=== PATIENT | male | born 1960 | race Caucasian/White ===

== ENCOUNTER 2016-11-20 21:16 | Emergency (ER) | payer OTHER ==
[~2016-11-20] VITALS: Ht 185.4 cm; Wt 65.9 kg
[2016-11-20 21:18] VITALS: Ht 185.4 cm; Wt 65.9 kg
--- NOTE | 2016-11-20 22:31 | ERA ---
ER Documentation Chief Complaint Date/Time DATE: 11/20/16 TIME: 22:30 Chief Complaint GLENYS RA81 from home, generalized weakness for 1 week HPI The patient is a 56-year-old male, presenting to the ER because of generalized weakness for more than a week, decreased appetite, diarrhea for the last 3 days , intermittent cough for the last 2 days. He had similar symptoms previously, denies syncope, near syncope, seizure, neck pain, chest pain, dyspnea, abdominal pain, vomiting, dysuria. He smokes socially, denies drinking or using illicit drug Past medical history: Diabetes mellitus, HIV with an undetectable virus load, hypertension, dyslipidemia Past surgical history: None ROS All systems reviewed and are negative except as per history of present illness. Medications Home Meds Active Scripts Loperamide Hcl* (Imodium*) 2 Mg Capsule, 2 MG PO .AFTER EA LOOSE BM Y for DIARRHEA, #10 TAB Prov:GRACIELA TOLEDO MD 11/20/16 Reported Medications Naproxen* (Naproxen*) 125 Mg/5 Ml Oral.susp, 500 MG PO BID, ML 11/20/16 Benazepril Hcl* (Benazepril Hcl*) 5 Mg Tablet, 5 MG PO DAILY, #30 TAB 11/20/16 Ritonavir* (Norvir*) 100 Mg Capsule, 100 MG PO DAILY, CAP 11/20/16 Darunavir* (Prezista*) 100 Mg/1 Ml Oral.susp, 800 MG PO DAILY, ML 11/20/16 Emtricitabine-Tenofovir* (Truvada*) 200-300 Mg Tablet, 1 TAB PO DAILY, TAB 11/20/16 Aspirin* (Aspirin* EC) 81 Mg Tablet.dr, 81 MG PO DAILY, TAB 11/20/16 Atorvastatin Calcium* (Atorvastatin Calcium*) 20 Mg Tablet, 20 MG PO DAILY, #30 TAB 11/20/16 Allergies Allergies: Coded Allergies: No Known Allergy (Unverified , 11/20/16) PMhx/Soc Medical and Surgical Hx: pt denies Surgical Hx Hx Cardiac Disorders: Yes (HTN hyperlipidemia) Hx Miscellaneous Medical Probl: Yes (DM HIV) Hx Alcohol Use: No Hx Substance Use: No Hx Tobacco Use: Yes Smoking Status: Current every day smoker Physical Exam Vitals Vital Signs Date Time Temp Pulse Resp B/P Pulse Ox O2 Delivery O2 Flow Rate FiO2 11/20/16 23:08 77 124/95 95 Room Air 11/20/16 21:18 97.5 90 18 112/68 97 Physical Exam Const: No acute distress. Dehydrated Head: Atraumatic. Eyes: Normal Conjunctiva. ENT: Normal External Ears, Nose and Mouth. Neck: Full range of motion. No meningismus. Resp: Clear to auscultation bilaterally. Cardio: Regular rate and rhythm. Abd: Soft, non distended, normal bowel sounds, non tender. Skin: No petechiae or rashes. Back: No midline or flank tenderness. Ext: No cyanosis, or edema. Neur: Awake and alert. No focal deficit Psych: Normal Mood and Affect. Result Diagram: 11/20/16214311/20/162143 Results 24 hrs Laboratory Tests Test 11/20/16 21:44 White Blood Count 5.210^3/ul Red Blood Count 4.5910^6/ul Hemoglobin 14.9g/dl Hematocrit 40.9% Mean Corpuscular Volume 89.1fl Mean Corpuscular Hemoglobin 32.5pg Mean Corpuscular Hemoglobin Concent 36.4g/dl Red Cell Distribution Width 11.6% Platelet Count 46626^3/UL Mean Platelet Volume 10.1fl Neutrophils % 36.2% Lymphocytes % 52.7% Monocytes % 8.8% Eosinophils % 1.3% Basophils % 0.6% Nucleated Red Blood Cells % 0.0/100WBC Neutrophils # 1.910^3/ul Lymphocytes # 2.810^3/ul Monocytes # 0.510^3/ul Eosinophils # 0.110^3/ul Basophils # 0.010^3/ul Nucleated Red Blood Cells # 0.010^3/ul Prothrombin Time 12.6Sec Prothrombin Time Ratio 1.0 INR International Normalized Ratio 0.94 Activated Partial Thromboplast Time 30.9Sec Sodium Level 130mmol/L Potassium Level 3.7mmol/L Chloride Level 97mmol/L Carbon Dioxide Level 26mmol/L Anion Gap 11 Blood Urea Nitrogen 14mg/dl Creatinine 0.78mg/dl Glucose Level 117mg/dl Calcium Level 9.7mg/dl Total Bilirubin 0.4mg/dl Direct Bilirubin 0.00mg/dl Indirect Bilirubin 0.4mg/dl Aspartate Amino Transf (AST/SGOT) 38IU/L Alanine Aminotransferase (ALT/SGPT) 55IU/L Alkaline Phosphatase 111IU/L Total Protein 7.8g/dl Albumin 4.6g/dl Globulin 3.20g/dl Albumin/Globulin Ratio 1.43 Lipase 72U/L Ethyl Alcohol Level < 10.0mg/dl Current Medications Medications (Trade) Dose Ordered Sig/Liana Route PRN Reason Start Time Stop Time Status Last Admin Dose Admin Sodium Chloride (NS) 1,000 ml @ 1,000 mls/hr Q1H ONCE IV 11/20/16 23:00 11/20/16 23:59 11/20/16 23:10 Procedures/[place] [id number] Radiology Main Line: [phone] DIAGNOSTIC IMAGING REPORT Patient: SHANNEN RITTER : 1960 Age: 56 Sex: M MR #: [id number] DOS: 11/20/16 2245 Ordering MD: GRACIELA TOLEDO MD Location: E/R Room/Bed: PROCEDURE: XR Chest. CLINICAL INDICATION: Chest pain. Abdominal pain TECHNIQUE: Portable AP upright view of the chest was obtained. COMPARISON: None. FINDINGS: The cardiomediastinal silhouette is within normal limits. The lungs are clear. There is no evidence for pleural effusion, pneumothorax or pulmonary vascular congestion. The osseous structures are intact with no evidence for acute abnormality. RPTAT:HJJR IMPRESSION: No evidence for acute intrathoracic pathology. Physician Dee Date Time Electronically viewed and signed by Physician Dee on 11/20/2016 23:17 JR/ CC: GRACIELA TOLEDO MD EKG: Read by emergency physician Rate/Rhythm: Normal Sinus Rhythm 87 beats/min QRS, ST, T-waves: No ST elevation, no T inversion, septal Q waves Impression: Abnormal EKG MEDICAL MAKING DECISION: The patient is a 56-year-old male, presenting with acute dehydration. He was treated with 1 L normal saline for acute dehydration with good response. The differential diagnoses considered include but are not limited to pneumonia, viral syndrome, cystitis, infectious diarrhea, central causes such as cerebellar infarct, cerebellar hemorrhage, cerebellar tumor, acoustic neuroma, peripheral causes such as benign positional vertigo, labyrinthitis, medication, Meniere's disease. Departure Diagnosis: Primary Impression: Dehydration Condition: Good Comments He was discharged with Imodium I discussed the findings with the patient. I advised the patient to follow-up with the primary physician in about 1-2 days, sooner if needed and return if any concern. GRACIELA TOLEDO MD Nov 20, 2016 22:30
[2016-11-20 22:56] LABS: ADD SCAN DIFF NO
[2016-11-20 22:58] LABS: BASOPHILS % 0.6 % (0.0-2.0); EOSINOPHILS # 0.1 10^3/ul (0.0-0.5); EOSINOPHILS % 1.3 % (0.0-7.0); HEMATOCRIT 40.9 % (42.0-52.0); HEMOGLOBIN 14.9 g/dl (14.0-18.0); LYMPHOCYTES # 2.8 10^3/ul (0.8-2.9); LYMPHOCYTES % 52.7 % (15.0-51.0); MEAN CORPUSCULAR HEMOGLOBIN 32.5 pg (29.0-33.0); MEAN CORPUSCULAR HGB CONC 36.4 g/dl (32.0-37.0); MEAN CORPUSCULAR VOLUME 89.1 fl (82.0-101.0); MEAN PLATELET VOLUME 10.1 fl (7.4-10.4); MONOCYTE # 0.5 10^3/ul (0.3-0.9); MONOCYTES % 8.8 % (0.0-11.0); NEUTROPHIL # 1.9 10^3/ul (1.6-7.5); NEUTROPHILS % 36.2 % (39.0-77.0); PLATELET COUNT 163 10^3/UL (140-415); RED BLOOD COUNT 4.59 10^6/ul (4.70-6.10); RED CELL DISTRIBUTION WIDTH 11.6 % (11.5-14.5); WHITE BLOOD COUNT 5.2 10^3/ul (4.8-10.8)
[2016-11-20] MEDS ORDERED: SOD CHLORIDE 0.9% 1,000 ML IV ONE (23:00)
[2016-11-20 23:02] LABS: INR 0.94; PARTIAL THROMBOPLASTIN TIME 30.9 Sec (25.0-35.0); PROTIME 12.6 Sec (12.2-14.2)
[2016-11-20 23:05] LABS: ALANINE AMINOTRANSFERASE 55 IU/L (13-69); ALBUMIN 4.6 g/dl (3.3-4.9); ALBUMIN/GLOBULIN RATIO 1.43; ALKALINE PHOSPHATASE 111 IU/L (42-121); ANION GAP 11 (8-16); ASPARTATE AMINO TRANSFERASE 38 IU/L (15-46); BILIRUBIN,INDIRECT 0.4 mg/dl (0-1.1); BILIRUBIN,TOTAL 0.4 mg/dl (0.2-1.3); BLOOD UREA NITROGEN 14 mg/dl (7-20); CALCIUM 9.7 mg/dl (8.4-10.2); CARBON DIOXIDE 26 mmol/L (21-31); CHLORIDE 97 mmol/L (97-110); CREATININE 0.78 mg/dl (0.61-1.24); GLUCOSE 117 mg/dl (70-220); POTASSIUM 3.7 mmol/L (3.5-5.1); SODIUM 130 mmol/L (135-144); TOTAL PROTEIN 7.8 g/dl (6.1-8.1)
[2016-11-20 23:08] LABS: ETHANOL < 10.0 mg/dl
--- NOTE | 2016-11-20 23:17 | RADRPT ---
PROCEDURE: XR Chest. CLINICAL INDICATION: Chest pain. Abdominal pain TECHNIQUE: Portable AP upright view of the chest was obtained. COMPARISON: None. FINDINGS: The cardiomediastinal silhouette is within normal limits. The lungs are clear. There is no evidenc e for pleural effusion, pneumothorax or pulmonary vascular congestion. The osseous structures are i ntact with no evidence for acute abnormality. RPTAT:HJJR IMPRESSION: No evidence for acute intrathoracic pathology. Physician Dee Date Time Electronically viewed and signed by Physician Dee on 11/20/2016 23:17 JR/
[2016-11-20] MEDS ORDERED: DARU100O PO (23:30)
[2016-11-20] MEDS ORDERED: NAPR125O4 PO (23:30)
[2016-11-20] MEDS ORDERED: EMTR1TAB11 PO (23:30)
[2016-11-20] MEDS ORDERED: NORV100 PO (23:30)
[2016-11-20] MEDS ORDERED: ATOR20TA38 PO (23:30)
[2016-11-20] MEDS ORDERED: ASPI-664 PO (23:30)
[2016-11-20] MEDS ORDERED: BENA5TAB2 PO (23:30)
[2016-11-20] MEDS ORDERED: LOPE2CAP PO (23:46)
[2016-11-21 01:44] VITALS: BP 114/75; PULSE 88; RESP 18
[2016-11-21 02:05] LABS: URINE BLOOD (Dip) POC Negative (NEGATIVE)
[2016-11-21 04:18] LABS: BARBITURATES Negative (NEGATIVE); BENZODIAZEPINES Negative (NEGATIVE); CANNABINOIDS Negative (NEGATIVE); COCAINE Negative (NEGATIVE); OPIATES Negative (NEGATIVE)
== END 2016-11-21 02:49 | disposition home or self-care (01) ==
LOC: E/R 21:16
DX: E86.0 Dehydration (principal); E11.9 Type 2 diabetes mellitus without complications; I10 Essential (primary) hypertension; F17.210 Nicotine dependence, cigarettes, uncomplicated; R07.9 Chest pain, unspecified; Z79.82 Long term (current) use of aspirin
CPT/HCPCS: 36415; 71010; 80053; 80306; 80307; 81003; 83690; 85025; 85610; 85730; 93005; J7030; Z7502